=== PATIENT | male | born 1990 | race Asian ===

== ENCOUNTER 2017-02-22 02:19 | Emergency (ER) | payer BC ==
[~2017-02-22] VITALS: Ht 172.7 cm; Wt 76.4 kg
[2017-02-22] MEDS ORDERED: LIDOCAINE HCL BUFFERED 1% 20 ML VIAL INJ ONE (03:15)
[2017-02-22 04:13] VITALS: BP 119/78
[2017-02-22] MEDS ORDERED: PERTUSS(ACELL),DIPH,TET VAC/PF 0.5 ML VIAL IM ONE (04:15)
== END 2017-02-22 04:27 | disposition home or self-care (01) ==
LOC: EMS 02:22
DX: S61.212A Laceration without foreign body of right middle finger without damage to nail, initial encounter (principal); S61.214A Laceration without foreign body of right ring finger without damage to nail, initial encounter; S09.93XA Unspecified injury of face, initial encounter; S60.511A Abrasion of right hand, initial encounter; W22.8XXA Striking against or struck by other objects, initial encounter; Y93.89 Activity, other specified; Y92.89 Other specified places as the place of occurrence of the external cause; Y99.8 Other external cause status
CPT/HCPCS: 12002; 73130; 90471; 90715; 99284; J3490